=== PATIENT | male | born 1940 | race Caucasian/White ===

== ENCOUNTER 2019-02-24 14:55 | Emergency (ER) | payer OTHER, MEDICARE, BC ==
[2019-02-24] MEDS ORDERED: Sodium Chloride 0.9% 10 ML Syringe FLUSH PRN (15:20)
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
[2019-02-24] MEDS ORDERED: Sodium Chloride 0.9% 10 ML Syringe FLUSH ONE (15:29)
[2019-02-24] MEDS ORDERED: Sodium Chloride 0.9% 100 ML IV SCH (15:30)
[2019-02-24] MEDS ORDERED: Sodium Chloride 0.9% 1,000 ML IV SCH (15:30)
[2019-02-24] MEDS ORDERED: Iopamidol 612 MG/ML 100 ML Bottle IV SCH (15:30)
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
[2019-02-24] MEDS ORDERED: Diltiazem 120 MG Cap.CD PO ONE ×2 (16:59→17:14)
[2019-02-24] MEDS ORDERED: Warfarin 5 MG Tab PO ONE (16:59)
[2019-02-24 17:12] VITALS: BP 147/87; PULSE 81
== END 2019-02-24 18:29 | disposition home or self-care (01) ==
LOC: JP.ED 14:55
DX: S30.0XXA Contusion of lower back and pelvis, initial encounter (principal); I48.91 Unspecified atrial fibrillation; Z79.01 Long term (current) use of anticoagulants; Z79.899 Other long term (current) drug therapy; V57.5XXA Driver of pick-up truck or van injured in collision with fixed or stationary object in traffic accident, initial encounter
CPT/HCPCS: 36415; 74177; 80048; 85025; 96360; 96361; 99284; A9270; J7030; Q9967; 99283

== ENCOUNTER 2021-03-27 07:51 | Emergency (ER) | payer MEDICARE, BC ==
--- NOTE | 2021-03-27 08:48 | EDM.PDOC ---
ED HPI GENERAL MEDICAL PROBLEM - General Chief Complaint: General Stated Complaint: DIZZY SPELL Time Seen by Provider: 03/27/21 08:44 Source of Information: Reports: Patient History Limitations: Reports: No Limitations - History of Present Illness INITIAL COMMENTS - FREE TEXT/NARRATIVE: pt woke up this am and he was not able to maintain his balance. He felt ok last nite before going to bed. He has not had a headache. He is on elequist for his afib. He did fall on friday and he hit his left forehead area. Onset: Today, Sudden Duration: Hour(s): Location: Reports: Generalized, Other (pt felt like the room was spinning. ) Associated Symptoms: Reports: Other (pt was very dizzy. ) - Related Data Allergies Allergy/AdvReac Type Severity Reaction Status Date / Time No Known Allergies Allergy Verified 03/27/21 08:17 Home Meds: Home Meds Furosemide 40 mg PO DAILY 04/10/16 [History] Omeprazole 40 mg PO DAILY 02/24/19 [History] Tolterodine Tartrate [Tolterodine Tartrate ER] 4 mg PO DAILY 02/24/19 [History] Amiodarone [Cordarone] 200 mg PO DAILY 03/27/21 [History] Apixaban [Eliquis] 5 mg PO BID 03/27/21 [History] Famotidine 20 mg PO DAILY 03/27/21 [History] Fluticasone Furoate [Arnuity Ellipta] 50 mcg IH ASDIRECTED PRN 03/27/21 [History] Metoprolol Tartrate 50 mg PO BID 03/27/21 [History] Potassium Chloride 20 meq PO DAILY 03/27/21 [History] Tamsulosin [Tamsulosin 24 Hr] 0.4 mg PO BEDTIME 03/27/21 [History] Past Medical History HEENT History: Reports: Allergic Rhinitis, Impaired Vision Cardiovascular History: Reports: Afib, High Cholesterol, Hypertension Other Cardiovascular History: irregular rythm on coumadin for it cannot remember what rythm Respiratory History: Reports: None Gastrointestinal History: Reports: Cholelithiasis Genitourinary History: Reports: Prostate Disorder Musculoskeletal History: Reports: Arthritis Neurological History: Reports: CVA Other Neuro History: left leg deficet Psychiatric History: Reports: None Endocrine/Metabolic History: Reports: None Hematologic History: Reports: None Immunologic History: Reports: None Oncologic (Cancer) History: Reports: Prostate Dermatologic History: Reports: None - Infectious Disease History Infectious Disease History: Reports: Chicken Pox, Mumps - Past Surgical History GI Surgical History: Reports: Cholecystectomy, Colonoscopy Other Male Surgeries/Procedures: prostate cancer Social & Family History - Tobacco Use Tobacco Use Status *Q: Never Tobacco User - Caffeine Use Caffeine Use: Reports: Coffee - Recreational Drug Use Recreational Drug Use: No ED ROS GENERAL - Review of Systems Review Of Systems: See Below Constitutional: Reports: No Symptoms HEENT: Reports: No Symptoms Respiratory: Reports: No Symptoms Cardiovascular: Reports: Other (pt has a history of afib and he is on elequis. ) Endocrine: Reports: No Symptoms GI/Abdominal: Reports: No Symptoms : Reports: No Symptoms Musculoskeletal: Reports: No Symptoms Skin: Reports: No Symptoms ED EXAM, GENERAL - Physical Exam Exam: See Below Free Text/Narrative:: pt arrived with a aepisode of loss of balance and marked vertigo. He does not have aheadache. He has a history of atrial fib and is on elequis. Exam Limited By: No Limitations General Appearance: Alert, No Apparent Distress, Other (pupils are equal and reactive. ) Ears: Normal TMs Nose: Normal Inspection Throat/Mouth: Normal Inspection Head: Atraumatic Respiratory/Chest: No Respiratory Distress Cardiovascular: Regular Rate, Rhythm GI/Abdominal: Soft, Non-Tender (Male) Exam: Deferred Rectal (Males) Exam: Deferred Back Exam: Normal Inspection Extremities: Pedal Edema, Other (discoloration from stais changes) Neurological: Alert, Oriented, Inattentive Psychiatric: Normal Affect Course - Vital Signs Last Recorded V/S: Last Vital Signs Temp 36.2 C 03/27/21 08:15 Pulse 74 03/27/21 10:45 Resp 16 03/27/21 10:45 BP 157/94 H 03/27/21 10:45 Pulse Ox 99 03/27/21 10:45 - Orders/Labs/Meds Labs: Laboratory Tests 03/27/21 03/27/21 03/27/21 Range/Units 08:51 08:56 08:56 WBC 5.5 (4.5-11.0) K/uL RBC 4.89 (4.30-5.90) M/uL Hgb 15.4 H (12.0-15.0) g/dL Hct 46.1 (40.0-54.0) % MCV 94 (80-98) fL MCH 32 H (27-31) pg MCHC 33 (32-36) % Plt Count 206 (150-400) K/uL Neut % (Auto) 83.7 H (36-66) % Lymph % (Auto) 8.6 L (24-44) % [place] % (Auto) 6.6 H (2-6) % Eos % (Auto) 0.9 L (2-4) % Baso % (Auto) 0.2 (0-1) % Sodium 136 L (140-148) mmol/L Potassium 3.6 (3.6-5.2) mmol/L Chloride 100 (100-108) mmol/L Carbon Dioxide 30 (21-32) mmol/L Anion Gap 9.6 (5.0-14.0) mmol/L BUN 16 (7-18) mg/dL Creatinine 1.0 (0.8-1.3) mg/dL Est Cr Clr Drug Dosing 62.86 mL/min Estimated GFR (MDRD) > 60 (>60) Glucose 141 H (74-106) mg/dL Calcium 8.4 L (8.5-10.1) mg/dL Total Bilirubin 1.4 H (0.2-1.0) mg/dL AST 21 (15-37) U/L ALT 26 (12-78) U/L Alkaline Phosphatase 118 H (46-116) U/L Total Protein 6.4 (6.4-8.2) g/dL Albumin 3.8 (3.4-5.0) g/dL Globulin 2.6 (2.3-3.5) g/dL Albumin/Globulin Ratio 1.5 (1.2-2.2) Urine Color Yellow (YELLOW) Urine Appearance Clear (CLEAR) Urine pH 6.0 (5.0-8.0) Ur Specific [place] 1.015 (1.008-1.030) Urine Protein Negative (NEGATIVE) mg/dL Urine Glucose (UA) Negative (NEGATIVE) mg/dL Urine Ketones Negative (NEGATIVE) mg/dL Urine Occult Blood Negative (NEGATIVE) Urine Nitrite Negative (NEGATIVE) Urine Bilirubin Negative (NEGATIVE) Urine Urobilinogen 0.2 (0.2-1.0) EU/dL Ur Leukocyte Esterase Negative (NEGATIVE) Urine RBC 0-5 (0-5) Urine WBC 0-5 (0-5) Ur Epithelial Cells Not seen Amorphous Sediment Rare Urine Bacteria Rare Urine Mucus Not seen Meds: Medications Discontinued Medications Generic Name Dose Route Start Last Admin Trade Name Juan PRN Reason Stop Dose Admin Sodium Chloride 100 mls @ 3 mls/sec 03/27/21 10:30 03/27/21 10:58 Normal Saline IV 3 mls/sec ASDIRECTED [facility] Administration Iopamidol 100 ml 03/27/21 10:30 03/27/21 10:58 Iopamidol 755 Mg/Ml 100 Ml Bottle IV 03/27/21 15:00 100 ml . DIRECTED [facility] Administration Sodium Chloride 10 ml 03/27/21 10:29 Sodium Chloride 0.9% 10 Ml Syringe FLUSH 03/27/21 10:30 ONETIME ONE Sodium Chloride 10 ml 03/27/21 10:58 Sodium Chloride 0.9% 10 Ml Syringe FLUSH 03/27/21 10:59 ONETIME ONE - Re-Assessments/Exams Free Text/Narrative Re-Assessment/Exam: 03/27/21 12:13 pt had a cat scan of the head which showed a subacute frontal lobe stroke. He had a cta which showed no crital vascular stenosis. He will return tomorrow for a MRI. Departure - Departure Time of Disposition: 12:05 Disposition: Home, Self-Care 01 Condition: Fair Clinical Impression: Ischemic stroke of frontal lobe, Atrial fibrillation - Discharge Information Instructions: Stroke Prevention, [id number], Atrial Fibrillation, [id number] Referrals: PCP,None [Primary Care Provider] - Forms: ED Department Discharge Care Plan Goals: send a copy of the cta and cat scan with the pt for when he returns to [place]. rtc tomorrow for a MRI of the head. continue with elequs, rtc if increased symptoms.
--- NOTE | 2021-03-27 09:28 | CT ---
Head wo Cont CLINICAL HISTORY: Previous fall, vertigo COMPARISON: None TECHNIQUE: Transverse scans were obtained from the base of the skull through the vertex without IV contrast on a multislice, multidetector CT scanner. Auto dosage reduction and iterative reconstruction techniques employed. FINDINGS: There is a 2.5 x 2.0 x 3.2 cm ill-defined area of low-attenuation in the right frontal lobe. There is no evidence of hemorrhage.There is a well-demarcated area of low-attenuation in the left occipital parasagittal region. It measures 2.2 x 2.1 x 1.5 cm. Basal cisterns and sulci of the convexities are prominent. Ventricles are normal for patient's age. IMPRESSION: Ill-defined area low-attenuation the right frontal lobe may represent a region of subacute ischemic infarct Well-demarcated focus in the left occipital lobe is felt to represent an area of previous ischemic infarct of remote chronology No hemorrhage or extra-axial collection
[2021-03-27] MEDS ORDERED: Sodium Chloride 0.9% 10 ML Syringe FLUSH ONE ×2 (10:29→10:58)
[2021-03-27] MEDS ORDERED: Iopamidol 755 Mg/ML 100 ML Bottle IV SCH (10:30)
[2021-03-27] MEDS ORDERED: Sodium Chloride 0.9% 100 ML IV SCH (10:30)
[2021-03-27 11:30] VITALS: BP 157/94; PULSE 74
--- NOTE | 2021-03-27 11:48 | CT ---
Ang Neck CLINICAL HISTORY: Left frontal lobe stroke TECHNIQUE: Multiple axial images were obtained through the neck with the IV infusion of iodinated contrast. From these images sagittal and coronal reconstructions of the aortic arch and carotids were obtained. NASCET criteria is used. Auto dosage reduction and iterative reconstruction technique employed. FINDINGS: There is minimal plaque in the aortic arch. The proximal brachiocephalic arteries are tortuous. Both vertebral arteries are patent but tortuous. There is minimal plaque in the right carotid bifurcation. The right ICA is tortuous but free of stenosis. There is some streak artifact near the left carotid bifurcation. No significant plaque or is identified. The ICA is tortuous but free of stenosis. IMPRESSION: Tortuous brachiocephalic arteries with some minimal plaque. There is no significant stenosis
--- NOTE | 2021-03-27 12:00 | CT ---
Ang Head CLINICAL HISTORY: Right frontal stroke COMPARISON: None TECHNIQUE: Transverse scans were obtained from the base of the skull through the vertex before and following IV infusion of iodinated contrast on a spiral CT scanner. Auto dosage reduction and iterative reconstruction techniques employed.. FINDINGS: There is some hard plaque in the carotid siphon. This appears some detail. Some carotid siphon stenosis cannot excluded. There is some diminished vascularity in the right frontal lobe. Some of the branching vessels off the anterior cerebral and anterior branches of the right middle cerebral artery appear attenuated when compared to the left. No focal cutoff is identified. The vertebrobasilar arteries are mildly tortuous but patent without stenosis. The right posterior communicating artery is patent. The anterior communicating artery is patent. IMPRESSION: Calcified plaque in both carotid siphons obscure some detail. Some element of stenosis cannot be excluded. There is some diminution of branching vessels in the right frontal lobe periventricular region involving both branches of the right middle cerebral and right anterior cerebral artery. Note maryjane vessel cut off or focal stenosis identified.
== END 2021-03-27 12:31 | disposition home or self-care (01) ==
LOC: JP.ED 07:51
DX: I63.9 Cerebral infarction, unspecified (principal); I48.91 Unspecified atrial fibrillation; I10 Essential (primary) hypertension; M19.90 Unspecified osteoarthritis, unspecified site; Z79.01 Long term (current) use of anticoagulants; Z79.899 Other long term (current) drug therapy
CPT/HCPCS: 36415; 70450; 70496; 70498; 80053; 81001; 85025; 99284; 99285; Q9967

== ENCOUNTER 2021-12-28 18:53 | Emergency (ER) | payer MEDICARE, BC ==
[2021-12-28 19:26] VITALS: BP 172/105; PULSE 88
[2021-12-28 19:29] LABS: ESTIMATED GFR 68 mL/min (>60)
[2021-12-28] MEDS ORDERED: Acetaminophen/Codeine 300-30 MG Tab PO ONE (21:06)
== END 2021-12-28 21:36 | disposition home or self-care (01) ==
LOC: JP.ED 18:53
DX: S22.31XA Fracture of one rib, right side, initial encounter for closed fracture (principal); I10 Essential (primary) hypertension; E78.00 Pure hypercholesterolemia, unspecified; I48.91 Unspecified atrial fibrillation; Z79.899 Other long term (current) drug therapy; W19.XXXA Unspecified fall, initial encounter
CPT/HCPCS: 36415; 70450; 71250; 74176; 80053; 85025; 85610; 85730; 99283; 99284-25; A9270-GY